=== PATIENT | male | born 1980 ===

== ENCOUNTER 2017-03-17 10:52 | Emergency (ER) | payer OTHER ==
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
[2017-03-17] MEDS ORDERED: IBUPROFEN 800 MG TAB PO ONE (11:15)
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
[2017-03-17] MEDS ORDERED: IBUP800T37 PO (12:27)
[2017-03-17 12:29] VITALS: BP 126/93
== END 2017-03-17 12:35 | disposition home or self-care (01) ==
LOC: ER 11:11
DX: S39.012A Strain of muscle, fascia and tendon of lower back, initial encounter (principal); V89.2XXA Person injured in unspecified motor-vehicle accident, traffic, initial encounter
CPT/HCPCS: 72072; 72120; 99283